=== PATIENT | female | born 1965 | race Caucasian/White ===

== ENCOUNTER 2023-11-17 17:08 | Day surgery (SDC) | payer BC, SELFPAY ==
[2023-11-17] VITALS (15 sets, daily range): BP systolic 120–178; BP diastolic 70–116; PULSE 86–105; RESP 16–18; TEMP 36.2–37; O2SAT 91–100
--- NOTE | 2023-11-17 17:38 | PM.GSHP ---
History of Present Illness History of Present Illness Date Seen: 11/17/23 Chief complaint: Direct admit Narrative: Ingris Siu is a 58 year old female who presented to clinic today with a several day history of right lower quadrant pain. She states that she has had a bulge in her right lower abdomen since she had a hysterectomy approximately a year and half ago. She states that Monday evening she was mowing and she began having a bad ache in her right lower abdomen. She states with that she had vomiting and chills. She thought she had have a bowel movement so she went to sit in the bathroom. However, having a bowel movement did not help. She has not had any diarrhea. She states that the next day she still had abdominal discomfort. Laying down helped and moving around me the pain worse. She stayed home from work yesterday. This morning initially she thought she was better, however when she got up she felt were so she came in to be seen. At some point in the course of her abdominal discomfort she felt a pop in her groin, however the lower abdominal pain persisted after this. She has never had pain like this before. She last ate this morning. [facility] Medical History (Updated 11/17/23 @ 18:12 by Sherley Fam MD) Congenital absence of one kidney ?Q60.0 - Renal agenesis, unilateral (ICD-10) Hyperlipidemia ?E78.5 - Hyperlipidemia, unspecified (ICD-10) Hypertension ?I10 - Essential (primary) hypertension (ICD-10) Surgical History (Updated 11/17/23 @ 18:07 by Sherley Fam MD) H/O tubal ligation ?Z98.51 - Tubal ligation status (ICD-10) Status post laparoscopic hysterectomy ?Z90.710 - Acquired absence of both cervix and uterus (ICD-10) Social History Narrative: She is a current nonsmoker. She did smoke for years but quit 4 years ago. She drinks several alcoholic drinks per day. Denies any history of alcohol withdrawal. She works for [employer] Home Medications and Allergies Home Medications ?Medication ?Instructions ?Recorded ?Confirmed ?Type Lactobacillus acidophilus 0.5 mg 100 mmu cells PO DAILY PRN 11/17/23 11/17/23 History (100 million cell) tablet atorvastatin 20 mg tablet 20 mg PO HS 11/17/23 11/17/23 History hydrochlorothiazide 25 mg tablet 25 mg PO DAILY 11/17/23 11/17/23 History losartan 25 mg tablet (Cozaar) 25 mg PO DAILY 11/17/23 11/17/23 History topiramate 25 mg tablet (Topamax) 50 mg PO HS 11/17/23 11/17/23 History Exam Narrative: Exam Narrative: General appearance: Alert, cooperative, and in no distress Eyes: PERRLA, eye lids clear, and sclera white HENT Head: Normocephalic Ears: External ears normal Pulmonary: Clear to auscultation bilaterally Cardiovascular Heart: Regular rate and rhythm Extremities: warm and well perfused Gastrointestinal Abdominal: Laparoscopic scars consistent with surgical history. She is mildly tender in the right lower quadrant. She does have a reducible right inguinal hernia which presents itself with standing. Musculoskeletal: Extremities: Upper: Both upper extremities have normal joint range of motion and intact strength. Lower: Both lower extremities have normal joint range of motion and intact strength. Skin: Normal skin color, texture, and turgor. Neurologic: No focal deficits Psychiatric: Alert, oriented, cooperative, normal affect. Results Results Labs: White Blood count at [facility] was 7.3. Hemoglobin was 15. Creatinine 0.[address] scan report/results: report reviewed and image reviewed EKG: report reviewed and image reviewed Additional studies: IMPRESSION: 1. Appendix is thickened measuring up to 8 millimeters with subtle trace adjacent inflammatory stranding. Findings raise possibility of early acute appendicitis. 2. Fat containing small indirect right inguinal hernia. Associated nodular soft tissue focus extending into the canal with mild asymmetric prominence compared to the left. Indeterminate however may reflect sequela of chronic inflammatory change. Please note that all CT scans at this facility use dose modulation, iterative reconstruction, and/or weight-based dosing when appropriate to reduce radiation dose to as low as reasonably achievable. Dictated by Christopher Peter MD @ 11/17/2023 2:55:25 PM Progress Note:A&P Assessment and plan (1) Right inguinal hernia: Status: Acute (2) Appendicitis: Status: Acute Plan The patient is a 4-year-old female with a right inguinal hernia which is reducible currently, however may have been incarcerated possibly containing her appendix or a loop of small bowel. There are inflammatory changes about her appendix, therefore she could also have acute appendicitis with a concomitant hernia which became more symptomatic with the appendicitis. I recommended laparoscopy to start. I would remove her appendix even if it appears normal based on her symptoms and imaging. I will also make sure that she does not have any bowel compromise from possible incarceration earlier in the week, though based on her exam, her labs in the CT scan, I think this is less likely. We then discussed addressing the hernia. Since her story does sound fairly consistent with an incarcerated hernia which later reduced, and there is some tenderness there with possible chronic inflammatory change, I think it is reasonable to consider repair. We discussed hernia repair and that mesh is used to decrease recurrence, however mesh should not be used in the setting of an acute infection. I would therefore plan on an open repair, with clean instruments and drapes, with the decision of whether not to use mesh left up to the findings intra-abdominally. We discuss risks of both surgeries as well as recovery. She is agreeable to proceed and did sign informed consent. We will plan on going to the OR this evening.
[2023-11-17] MEDS: ERTAPENEM 1 GM inj IVPB (18:30)
[2023-11-17] MEDS: BUPIVACAINE 0.25% 30 ML INJECTION (19:12)
--- NOTE | 2023-11-17 19:26 | PM.GSPRC ---
Operative Note Date of procedure: 11/17/23 Pre-op diagnosis: 1. Possible acute appendicitis 2. Right inguinal hernia, possible recent incarceration Post-op diagnosis: 1. Acute appendicitis 2. Right inguinal hernia, possible recent incarceration Type of Procedure: Laparoscopic appendectomy Indications: The patient is a 4-year-old female who presented to clinic with 3 days of abdominal pain, chills and nausea. She had a bulge in her right groin and this seemed to be the source of her pain. However her pain persisted and she came in to be seen. She was found to have a right inguinal hernia on CT scan but also had inflammation and dilation of her appendix. There was concern for possible recent hernia incarceration versus appendicitis. I recommended exploration with appendectomy and possible hernia repair. Procedure Description: After discussing the risks and benefits of the procedure, the patient signed informed consent.? The operative site was marked and the patient was brought to the operating room and placed on the operating table in supine position.? Care was taken to pad the patient's pressure points.?? The patient was then Intubated by anesthesia.?? The operative site was then prepped and draped in the usual sterile fashion.? A time-out was then performed. Entrance to the abdomen was obtained via open Pitt technique just below the umbilicus. A 12 port was placed in the abdomen was insufflated. A 5 mm port was placed in the left upper quadrant as well as the left lower abdomen. Both were done under direct vision. The patient was then placed in Trendelenburg position with the right side up. The patient was noted to have bilateral inguinal hernias. There was a small amount of omental fat on the right which self reduced as the patient was positioned. There was no evidence of omental inflammation to suggest recent incarceration the hernia. There was no fluid in the hernia sac. The appendix was in view. This was noted to be injected, firm and distended. A small amount of dissection was necessary to free the appendix from the surrounding pelvic attachments. The appendix was grasped and pulled into view. A mesenteric window was created between the base of the appendix and the mesoappendix. An Endo-LASHAWN purple load stapler was then used to transect the appendix at its base. A vascular load stapler was then used to divide the mesoappendix. The staple lines were inspected for bleeding. there was a small amount of oozing from the mesenteric staple line. This was controlled with 5 mm clips. The appendix was then removed from the abdomen using an Endo-Catch bag. The specimen was sent to pathology. The area appeared to be hemostatic. We had discussed possible hernia repair, however because there was no evidence of recent incarceration, though the appendix was inflamed and could possibly have been located within the hernia prior to the patient's presentation to clinic, because of her bilateral hernias and the clean contaminated case I felt it was best to terminate the operation after the appendectomy and recommend laparoscopic bilateral inguinal hernia repair after she has recovered. The ports were then removed and the abdomen was desufflated. The 12 mm port site fascia was closed with 0 Vicryl. The skin was then closed with absorbable subcuticular suture. Sterile dressings were then applied. Instrument sponge and needle counts were correct at the end of the case. The patient was then woken and transported to the PACU in stable condition. ? The patient tolerated the procedure well. Findings: 1. Acute appendicitis 2. bilateral inguinal hernias Anesthesia: GETA Surgeon: Sherley Fam MD Estimated blood loss (mL): 5 Specimen: Appendix Condition: stable Disposition: PACU
[2023-11-17] MEDS: ALBUTEROL SULFATE 2.5 MG/3 ML VIAL.NEB NEB (19:39)
[2023-11-17] MEDS: LACTATED RINGERS 1000 ML 1,000 ML 35 ML IV (19:51)
--- NOTE | 2023-11-17 20:09 | P.ANES_ITS ---
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
--- NOTE | 2023-11-17 22:12 | PC.NURSE ---
ADMISSION/DISCHARGE NOTE: Pt is A&O, up to M/S floor at 2007, denied pain SOB CP and N/V. Tolerated fluids and crackers with no nausea. Up SBA to BR, tolerated well. Surgical incisions with steri strips intact, ice pack to abdomen. VSS on RA. IV d/c with catheter intact. Discharge instructions given verbally and written to pt and pt's boyfriend, pt acknowledged understanding. Pt ambulated independently at discharge, all pt belongings sent with pt. Pt d/c at 2007, pt headed to ER with [facility] prescription for [facility].
== END 2023-11-17 22:03 | disposition home or self-care (01) ==
LOC: OR 17:10 → MEDSURG 17:12
PROVIDERS: PCP Physician Assistant; Visit Provider Surgery
PROC: 0DTJ4ZZ Resection of Appendix, Percutaneous Endoscopic Approach (ICD-10-PCS; CPT 44970; principal; 2023-11-17 17:30)
DX: K35.80 Unspecified acute appendicitis (principal); R10.31 Right lower quadrant pain; K40.20 Bilateral inguinal hernia, without obstruction or gangrene, not specified as recurrent; I10 Essential (primary) hypertension; Q60.0 Renal agenesis, unilateral; R94.31 Abnormal electrocardiogram [ECG] [EKG]
CPT/HCPCS: 44970; 00840; 88304; 94640; 99140; J0330; J0665; J1335; J1885; J2250; J2704; J3010; J3490; J7120

== ENCOUNTER 2023-12-21 11:03 | Day surgery (SDC) | payer BC, SELFPAY ==
[2023-12-21] VITALS (12 sets, daily range): BP systolic 136–180; BP diastolic 65–98; PULSE 70–97; RESP 12–16; TEMP 36.1–37; O2SAT 93–98; BMI 25.8
[2023-12-21] MEDS: LACTATED RINGERS 1000 ML 1,000 ML 100 ML IV (11:25)
[2023-12-21] MEDS: SODIUM CHLORIDE 0.9 % (FLUSH) 10 ML SYRINGE IVF (11:31)
--- NOTE | 2023-12-21 11:57 | P.GSOP_ITS ---
Operative Note Date of procedure: 12/21/23 Pre-op diagnosis: Bilateral inguinal hernias Post-op diagnosis: Same Type of Procedure: Laparoscopic repair bilateral inguinal hernias Indications: The patient is a 4-year-old female with a known right inguinal hernia. She recently presented with acute appendicitis. At that time she was found to have a hernia on the right side as well. Once she had recovered from the surgery she elected to proceed with repair of both hernias. Procedure Description: After discussing the risks and benefits of the procedure, the patient signed informed consent.? The operative site was marked and the patient was brought to the operating room and placed on the operating table in supine position.? Care was taken to pad the patient's pressure points.?? The patient was then intubated by anesthesia.?? The operative site was then prepped and draped in the usual sterile fashion.? A time-out was then performed. A curvilinear incision was made below the umbilicus. Dissection was carried down to subcutaneous tissue until the anterior rectus fascia was encountered. This was incised off the midline on the right. The rectus muscle fibers were then retracted exposing the posterior fascia. A port with a dissecting balloon was then introduced into the pre-preperitoneal space. This was inflated under direct vision. The balloon was deflated, removed, and a 10 mm working port was placed. The space was insufflated and a 10 mm 30-degree scope was then advanced into the space. Two 5 mm ports were placed in the midline under direct vision. Dissection began on the right side. Ta's ligament and the pubic bone were exposed medially. Following this, dissection was carried out laterally. An indirect defect was noted. The sac was dissected free using a combination of sharp and blunt dissection. A small peritoneal tear revealed that possibly her right ov abel was contained within. The peritoneal tear was closed with a clip and the ovary was reduced from the hernia sac. The round ligament was clipped with 1 clip proximal 1 clip distal and divided. The peritoneum then was further dissected free to create a pocket in the preperitoneal space for mesh. Attention was then turned to the left side. On this side, the preperitoneal space was very adherent and it was difficult to create a preperitoneal pocket. The peritoneum tore. I was able to visualize the hernia and eventually dissect the peritoneum away. The hernia was identified and reduced. Similarly, the round ligament was clipped and divided. Medially towards the pubic bone, the fatty tissue was quite adherent. There did not appear to be a direct inguinal hernia here, however the preperitoneal fat was very adherent and difficult to dissect down white from the pubic bone. This was done, examining to ensure there were no other structures adherent. I was eventually able to dissect this down sufficiently to place mesh. Bard 3DMax mesh for each side was then introduced into the abdomen. On both sides they were positioned with the markers pointed medially. A Tacker was used to attach the mesh medially at Ta's ligament and 1 tack laterally with care to avoid the epigastric vessels and stay above the inguinal ligament. This was done on each side. The patient had been fairly oozy throughout the procedure. At the end of the procedure did not appear as though she had ongoing bleeding. There were no discrete blood vessels that appeared to be bleeding. I did place Jose in the preperitoneal space because of this. The preperitoneal space was then desufflated under direct vision to ensure the mesh laid flat. The tear in the peritoneum that had been created during the dissection on the left was clipped closed using a clip security program manager. 10 mL of 0.5% Marcaine were instilled into the preperitoneal space through a port. The ports were removed. The fascia from the infraumbilical port was closed with 0 Vicryl. The skin incisions were closed with absorbable subcuticular suture. Sterile dressings were then applied. Instrument sponge and needle counts were correct at the end of the case. The patient was then woken and transported to the recovery area in stable condition. ? The patient tolerated the procedure well. Findings: Bilateral indirect inguinal hernias, the right side appeared to be containing her ovary. Implants: Bard 3DMax mesh, bilaterally Anesthesia: GETA Surgeon: Sherley Fam MD Estimated blood loss (mL): 50 Condition: stable Disposition: PACU
--- NOTE | 2023-12-21 11:57 | W.PM.H&PU ---
History & Physical Update History & Physical Update H&P Reviewed and patient assessed: No changes noted
[2023-12-21] MEDS: CEFAZOLIN 1 GM inj IVP (12:15)
[2023-12-21] MEDS: BUPIVACAINE 0.25% 30 ML INJECTION (13:50)
--- NOTE | 2023-12-21 14:14 | W.ANESCHARGE ---
Anesthesia Charges Start Date/Time Anesthesia Start Date: 12/21/23 Anesthesia Start Time: 11:59 Stop Date/Time Anesthesia Stop Date: 12/21/23 Anesthesia Stop Time: 14:11
--- NOTE | 2023-12-21 20:28 | PC.NURSE ---
Virgil called M/S desk this evening with concern r/t hernia surgery done today. States she jumped up out of her bed very quickly and then noted some bleeding from lap site under umbilicus. Wound did, drip, drip, drip, drip for a few minutes. Pressure was applied and bleeding stopped and has remained stopped for past 45 minutes. No other abnormalities noted by patient. Dr. Fam updated via telephone. Advised patient, per MD, to keep an eye on this area. If it bleeds a little it is ok, but if it bleeds all night she should call the clinic in the morning and be seen. Patient understands this plan and is comfortable with it. Advised to call back with further questions.
== END 2023-12-21 15:42 | disposition home or self-care (01) ==
PROVIDERS: PCP Physician Assistant; Visit Provider Surgery
PROC: (CPT 49650; principal; 2023-12-21 12:45)
DX: K40.20 Bilateral inguinal hernia, without obstruction or gangrene, not specified as recurrent (principal)
CPT/HCPCS: 49650; 00840; 00860; C1781; J0665; J0690; J1100; J1170; J2250; J2405; J2704; J3010; J7120